=== PATIENT | female | born 2000 | race Caucasian/White ===

== ENCOUNTER 2020-02-16 08:41 | Outpatient (CLI) | payer BC, SELFPAY ==
--- NOTE | ~2020-02-16 | MR_ITS ---
EXAMINATION: Michelle Kwan DATE: 02/16/2020 10:35 INDICATION: Bilateral temporomandibular joint disorder. Arthralgia of bilateral temporomandibular daniel nts. TECHNIQUE: Magnetic resonance imaging (MRI) of the temporomandibular joints was performed without and with 13 mL MultiHance intravenous contrast. Sequences included closed-mouth sagittal T2-weighted FSE and PD-weighted FSE and coronal T1-weighted SE and open-mouth sagittal T2-weighted FSE and PD-weight ed FSE and coronal T1-weighted SE. Postcontrast sequences included closed-mouth sagittal T1-weighted FS FSE. COMPARISON: None. FINDINGS: The right temporomandibular joint demonstrates small osteophytes of the mandibular condyle. There is anterior displacement of the disk with mouth closed. There is decreased anterior translation of the m andibular condyle with mouth open. There is persistent anterior displacement of the disk with mouth o pen. No enhancing synovitis. The left temporomandibular joint demonstrates small osteophytes and subchondral cysts of the mandibul ar condyle. The anterior and posterior bands of the disk are small. There is anterior displacement o f the disk with mouth closed. There is decreased anterior translation of the mandibular condyle with mouth open. There is persistent anterior displacement of the disk with mouth open. There is enhancing synovitis. IMPRESSION: 1. Mild right temporomandibular joint osteoarthritis. Anterior disk displacement with mouth closed an d open. 2. Moderate left temporomandibular joint osteoarthritis. Anterior disk displacement with mouth closed and open. Reviewed, dictated and finalized at location A. 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 Mild right temporomandibular joint osteoarthritis. Anterior disk displacemen t with mouth closed and open. 2. Moderate left temporomandibular joint osteoarthritis. Anterior disk displace ment with mouth closed and open.
[2020-02-16 09:49] LABS: Estimated Glomerular Filt Rate > 60
== END 2020-02-16 08:42 | disposition home or self-care (01) ==
PROVIDERS: PCP Family Medicine
DX: M26.643 Arthritis of bilateral temporomandibular joint (principal)
CPT/HCPCS: 70336; A9577

== ENCOUNTER 2021-11-16 08:15 | Outpatient (CLI) | payer BC, SELFPAY ==
[2021-11-16 09:15] LABS: Alanine Aminotransferase 14 U/L (6-35); Albumin Level 4.7 g/dL (3.5-5.1); Alkaline Phosphatase 52 U/L (38-126); Aspartate Amino Transferase 32 U/L (14-36); Bilirubin,Total 0.8 mg/dL (0.2-1.3)
== END 2021-11-16 08:16 | disposition home or self-care (01) ==
PROVIDERS: PCP Family Medicine
DX: R76.8 Other specified abnormal immunological findings in serum (principal)
CPT/HCPCS: 36415; 80076

== ENCOUNTER 2022-05-24 17:16 | Outpatient (CLI) | payer BC, SELFPAY ==
[2022-05-24 17:43] LABS: Alanine Aminotransferase 18 U/L (6-35); Albumin Level 4.4 g/dL (3.5-5.1); Alkaline Phosphatase 56 U/L (38-126); Aspartate Amino Transferase 25 U/L (14-36); Bilirubin,Total 0.6 mg/dL (0.2-1.3)
== END 2022-05-24 17:17 | disposition home or self-care (01) ==
PROVIDERS: PCP Family Medicine
DX: Z83.2 Family history of diseases of the blood and blood-forming organs and certain disorders involving the immune mechanism (principal)
CPT/HCPCS: 36415; 80076

== ENCOUNTER 2024-12-19 22:51 | Emergency (ER) | payer BC, SELFPAY ==
--- NOTE | ~2024-12-19 | XR_ITS ---
Examination: XR forearm RT 2V, XR elbow RT 2V Clinical History: FALL. PROXIMAL RIGHT FOREARM PAIN. Comparison: None Technique: 4 views right elbow, 2 views right forearm Findings/impression: Right elbow: 1. Radial head fracture. 2. No dislocation. Right forearm: 1. Radial head fracture. 2. No additional fracture right forearm. Reviewed, dictated and finalized at location R.
--- NOTE | 2024-12-19 22:53 | ED.UPPEXIN ---
HPI - Extremity Injury (Upper) General Chief Complaint: Extremity Injury, Upper Stated Complaint: arm pain Time Seen by Provider: 12/19/24 22:52 Source: patient Mode of arrival: ambulatory Limitations: no limitations History of Present Illness HPI narrative: Patient is a 23-year-old female with a right elbow injury after playing softball this evening. [place] was at base at and ran slipped and landed on her right elbow. She heard a pop sound. MD complaint: injury to: right and elbow Onset (ago): hour(s) (One) Other injuries: none Place: outdoors Severity: moderate Severity scale (1-10): 7 Relieving factors: immobilization Exacerbating factors: movement of extremity Context: fall, direct blow, injury and sports-related injury Associated symptoms: denies other symptoms Treatments prior to arrival: cold therapy Related Data Allergies Allergy/AdvReac Type Severity Reaction Status Date / Time No Known Allergies Allergy Verified 12/19/24 22:52 Review of Systems Review of Systems: All systems reviewed & are unremarkable except as noted in HPI and below Constitutional: Constitutional: Reports no additional constitutional complaints Eyes: Eyes: Reports no additional eye complaints ENT: Reports system reviewed and no additional complaints, except as documented Cardiovascular: Cardiovascular: Reports no additional cardiovascular complaints Respiratory: Respiratory: Reports no additional respiratory complaints Gastrointestinal: Gastrointestinal: Reports no additional gastrointestinal complaints Genitourinary: Genitourinary: Reports no additional female genitourinary complaints Musculoskeletal: Musculoskeletal: Reports no additional musculoskeletal complaints Integumentary/Breasts: Skin/Breast: Reports system reviewed and no additional complaints, except as docu Neurologic: Reports system reviewed and no additional complaints, except as documented Psychiatric: Psychiatric: Reports no additional psychiatric complaints Endocrine: Endocrine: Reports no additional endocrine complaints Hematologic/Lymphatic: Hematologic/Lymphatic: Reports no additional hematologic/lymphatic complaints Allergic/Immunologic: Allergic/Immunologic: Reports no additional allergic/immunologic complaints Exam Const: General: healthy appearing Nutritional Appearance: well nourished Orientation/consciousness: patient oriented x3 HENMT: Head: normal to inspection Ears: external ears normal Face/Nose/Sinus: Normal external nose present Eyes: Conjunctivae: conjunctivae normal Pupils: Equal, round and reactive pupils present EOM: EOMs intact bilaterally Neck: Neck: normal visual inspection Chest: Chest palpation & inspection: normal inspection of the chest Resp: Effort & Inspection: normal respiratory effort and not labored Auscultation: clear to auscultation bilaterally and no crackles Cardio: Rate: regular rate Rhythm: regular rhythm Heart sounds: no murmurs GI: Inspection: non-distended GI Palp: Yes Soft to palpation and No Tenderness to palpation present (GI) Auscultation: normal bowel sounds : General: Yes bladder normal to palpation Back/Spine/Pelvis: Back: no CVA tenderness Skin: General skin exam: normal color Rashes: no rashes Wounds: no wounds Neuro: General: patient oriented x3, moves all extremities and no meningeal signs Extrem: General: normal to inspection, no clubbing, cyanosis or edema and no pedal edema Other: Right elbow appears swollen and irregular with tenderness to palpation to medial aspect Psych: Mental Status: mental status grossly normal Affect: Anxious affect present Attitude: cooperative Course Vital Signs Vital signs: Vital Signs Temperature 36.6 C 12/19/24 22:54 Pulse Rate 142 H 12/19/24 22:54 Respiratory Rate 20 12/19/24 22:54 Blood Pressure 139/102 H 12/19/24 22:54 Pulse Oximetry 97 12/19/24 22:54 Oxygen Delivery Room Air 12/19/24 22:54 Temperature 36.6 C 12/19/24 22:54 Pulse Rate 142 H 12/19/24 22:54 Respiratory Rate 20 12/19/24 22:54 Blood Pressure 139/102 H 12/19/24 22:54 Pulse Oximetry 97 12/19/24 22:54 Oxygen Delivery Room Air 12/19/24 22:54 MDM - Extremity Injury (Upper) MDM Narrative Medical decision making narrative: Patient is a 23-year-old female with right elbow injury while playing sports this evening. X-ray. Morphine. Toradol. X-ray shows fracture of the proximal or radial head. OCL and sling. Ortho this week. Imaging Data Attestation: I personally reviewed and interpreted this imaging study as follows: Radiologist's impression: X-ray right elbow shows radial head fracture X-ray right forearm shows radial head fracture Discharge Plan Discharge Clinical Impression: Closed fracture of radial head Qualifiers: Encounter type: initial encounter Fracture alignment: displaced Laterality: right Qualified Code(s): S52.121A - Displaced fracture of head of right radius, initial encounter for closed fracture Patient Disposition: Home Condition: Stable Instructions: Arm Fracture in Adults (ED) Additional Instructions: Please call orthopedics surgery after the weekend and make an appointment as soon as possible. This will need surgery. Patient Language: Latvian Prescriptions: New hydrocodone-acetaminophen 5-325 mg tablet 1 tablet PO Q8H PRN (Reason: pain) Qty: 20 0RF Follow-up/Referrals: Agustín,MD Edmar [Primary Care Provider, Family Practice] Stand Alone Forms: Work/School Release IP Time of Disposition: 00:02
--- OUTSIDE RECORDS SUMMARY | 2024-12-19 22:53 | XMS_ITS | Clinical Summary ---
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 Gender Identity Not on file Sexual Orientation Not on file Plan of Treatment Health Maintenance Due Date Last Done Comments Cervical Cancer Screening Pap Smear (Age 21 to 29) Every 3 Years 2000 Cervical Cancer Screening 2000 Annual Physical 12/25/2003 DTaP, Tdap and Td Vaccines (6 - Tdap) 12/25/2011 10/04/2006, 07/08/2002, 06/24/2001, Additional history exists HPV Vaccines (1 - 3-dose series) 12/25/2015 Meningococcal B Vaccine (1 of 2 - Standard) 2016 Hepatitis C 2018 Hepatitis B Vaccines (1 of 3 - 19+ 3-dose series) 12/25/2019 COVID-19 Vaccine ( - season) 2024 Meningococcal Vaccine Completed 08/22/2018 Pneumococcal Vaccine: Pediatrics (0 to 5 Years) and At-Risk Patients (6 to 49 Years) Aged Out No longer eligible based on patient's age to complete this topic RSV Immunizations Under 20 Months Aged Out No longer eligible based on patient's age to complete this topic Insurance [facility] Care Teams Early Childhood Assistant Relationship Specialty Start Date End Date Erasto Rivera MD [address] [place] [id number] PCP - General FAMILY PRACTICE 05/13/19
--- OUTSIDE RECORDS SUMMARY | 2024-12-19 22:53 | XMS_ITS | Clinical Summary ---
Author Organization [facility] Address [address] [place] [id number] Care Team Providers Care Sales Project Coordinator Name Role Phone Edmar Randolph MD Primary Care Provider Allergies No known active allergies Medications Blisovi Fe , 1 mg-20 mcg (21)/75 mg (7) per tablet Take 1 tablet by mouth daily 10/03/2021 Active hydroxychloroqu ine (PLAQUENIL) 200 mg tabletIndicatio ns:Connective Tissue Disease Take 2 tablets (400 mg total) by mouth daily 180 tablet 1 09/18/2024 Active Active Problems No known active problems Encounters Date Type Department Care Team Description 10/25/2024 6:53 AM CDT - 10/25/2024 11:59 PM CDT Hospital Encounter [facility] [address] [place] [id number] Systemic lupus erythematosus, unspecified SLE type, unspecified organ involvement status (HCC); Dyspnea, unspecified type Discharge Disposition: Discharge to home or self care 10/13/2024 11:55 AM CDT - 10/13/2024 11:59 PM CDT Hospital Encounter [address] [address] Systemic lupus erythematosus, unspecified SLE type, unspecified organ involvement status (HCC); Elevated CK Discharge Disposition: Discharge to home or self care 10/13/2024 11:45 AM CDT [facility] Endocrinology Metabolism and Lipid [address] [facility] 5th [place] [address] [place] [address] Systemic lupus erythematosus, unspecified SLE type, unspecified organ involvement status (HCC); Elevated CK 10/13/2024 10:20 AM CDT Office Visit [facility] Medicine Rheumatology [address] [facility] 5th [place] [id number] Kinga Rodrigues MD Systemic lupus erythematosus, unspecified SLE type, unspecified organ involvement status (HCC) (Primary Dx); Raynaud's disease without gangrene; High risk medication use; Elevated CK; Dyspnea, unspecified type; Facial rash 10/13/2024 Results Follow-Up [facility] Medicine Rheumatology [address] [place] [id number] Kinga Rodrigues MD Urinalysis reflex to microscopic and culture Urine, clean voided, Pro B-type natriuretic peptide, C4 complement, Additional followed-up results: 4 09/18/2024 Orders Only [facility] Medicine Rheumatology [address] [place] [address] [place] [address] Joanna Hinojosa MD from Last 3 Months Surgical History Surgery Date Site/Laterality Comments FOOT SURGERY Medical History Medical History Date Comments TMJ (dislocation of temporomandibular joint) Family History Medical History Relation Name Comments Arthritis Mother Relation Name Status Comments Mother Social History Tobacco Use Types Packs/Day Years Used Date Smoking Tobacco: Never Tobacco Cessation:Counseling Given: Not Answered AUDIT-C Answer Date Recorded Q1: How often do you have a drink containing alc ohol? Monthly or less 10/13/2024 Q2: How many drinks containi ng alcohol do you have on a typical day when you are drinking? 1 or 2 10/13/2024 Q3: How often do you have si x or more drinks on one occasion? Never 10/13/2024 Comments Unknown Sex and Gender Information Value Date Recorded Sex Assigned at Not on file Legal Sex Female 1:30 AM [employer] Gender Identity Not on file Sexual Orientation Not on file Obstetrics History Last Filed Vital Signs Vital Sign Reading Time Taken Comments Blood Pressure 125/75 10/13/2024 10:10 AM CDT Pulse 51 09/01/2024 7:47 AM CDT Temperature 37.2 C (98.9 F) 10/13/2024 10:10 AM CDT Respiratory Rate 18 10/13/2024 10:10 AM CDT Oxygen Saturation 100% 10/13/2024 10:10 AM CDT Inhaled Oxygen Concentration - - Weight 72.4 kg (159 lb 9.6 oz) 10/13/2024 10:10 AM CDT Height 180.3 cm (5' 11) 09/01/2024 7:47 AM CDT Body Mass Index 22.26 09/01/2024 7:47 AM CDT Plan of Treatment Health Maintenance Due Date Last Done Comments Cervical Cancer Screening 2000 Depression Screening 2000 Hepatitis C Screening 2000 Pneumococcal vaccine <65 (1 of 2 - PPSV23, PCV20, or PCV21) 06/17/2002 04/22/2002, 01/10/2002, 05/07/2001, Additional history exists HPV Vaccines (1 - Risk 3-dos e series) 12/25/2011 Meningococcal B Vaccine (1 o f 2 - Standard) 2016 Regular Well Visit/Exam 18-64 2018 Zoster Vaccine (1 of 2) 12/25/2019 Covid-19 Vaccine (3 - Pfizer risk series) 12/21/2020 11/23/2020, 11/02/2020 DTaP/Tdap/Td Vaccine (7 - Td or Tdap) 08/06/2022 08/06/2012, 10/04/2006, 07/08/2002, Additional history exists Influenza Vaccine (#1) 2024 Hepatitis B Screening Completed 07/08/2002 , 05/07/2001, 02/28/2001 Varicella Vaccines Completed 10/23/2006, 01/10/2002 Procedures Procedure Name Priority Date/Time Associated Diagnosis Comments CT CHEST HIGH RESOLUTION WO CONTRAST Schedule Routine, Read Routine (OP Routine) 10/25/2024 7:26 AM CDT Systemic lupus erythematosus, unspecified SLE type, unspecified organ involvement status (HCC) Dyspnea, unspecified type ANTI-DOUBLE STRANDED DNA ANTIBODIES Routine 10/13/2024 11:55 AM CDT Systemic lupus erythematosus, unspecified SLE type, unspecified organ involvement status (HCC) Elevated CK LUPUS ANTICOAGULANT PANEL PLUS REFLEXES Routine 10/13/2024 11:55 AM CDT Systemic lupus erythematosus, unspecified SLE type, unspecified organ involvement status (HCC) BETA 2 GLYCOPROTEIN IGM AB Routine 10/13/2024 11:55 AM CDT Systemic lupus erythematosus, unspecified SLE type, unspecified organ involvement status (HCC) BETA 2 GLYCOPROTEIN IGG AB Routine 10/13/2024 11:55 AM CDT Systemic lupus erythematosus, unspecified SLE type, unspecified organ involvement status (HCC) CARDIOLIPIN ANTIBODY, IGG AND IGM Routine 10/13/2024 11:55 AM CDT Systemic lupus erythematosus, unspecified SLE type, unspecified organ involvement status (HCC) ALDOLASE Routine 10/13/2024 11:55 AM CDT Elevated CK C3 COMPLEMENT Routine 10/13/2024 11:55 AM CDT Systemic lupus erythematosus, unspecified SLE type, unspecified organ involvement status (HCC) C4 COMPLEMENT Routine 10/13/2024 11:55 AM CDT Systemic lupus erythematosus, unspecified SLE type, unspecified organ involvement status (HCC) PRO B-TYPE NATRIURETIC PEPTIDE Routine 10/13/2024 11:55 AM CDT Systemic lupus erythematosus, unspecified SLE type, unspecified organ involvement status (HCC) Elevated CK CREATINE KINASE (CK), TOTAL Routine 10/13/2024 11:55 AM CDT Elevated CK ERYTHROCYTE SEDIMENTATION RATE Routine 10/13/2024 11:55 AM CDT Systemic lupus erythematosus, unspecified SLE type, unspecified organ involvement status (HCC) CRP (ACUTE PHASE) Routine 10/13/2024 11: 55 AM CDT Systemic lupus erythematosus, unspecified SLE type, unspecified organ involvement status (HCC) COMPREHENSIVE METABOLIC PANEL Routine 10/13/2024 11:55 AM CDT Systemic lupus erythematosus, unspecified SLE type, unspecified organ involvement status (HCC) CBC WITH AUTO DIFFERENTIAL Routine 10/13/2024 11:55 AM CDT Systemic lupus erythematosus, unspecified SLE type, unspecified organ involvement status (HCC) URINALYSIS AND REFLEX TO MICROSCOPIC AND CULTURE Routine 10/13/2024 11:55 AM CDT Systemic lupus erythematosus, unspecified SLE type, unspecified organ involvement status (HCC) from Last 3 Months Results * CT Chest High Resolution WO Contrast (10/25/2024 7:26 AM CDT) Anatomical Region Laterality Modality Chest N/A Computed Tomogra phy 10/25/2024 12:1 2 PM CDT Impressions 10/25/2024 12:[address]T Normal chest CT. Electronically signed by: Dean Staton M.D. Narrative 10/25/2024 12:12 PM CDT Examination: Computed tomography of the chest without intravenous contrast DATE: 10/25/2024. HISTORY: Dyspnea TECHNIQUE: Computed tomography of the chest was obtained without intravenous contrast according to the high-resolution CT protocol. FINDINGS: No prior studies are available for comparison. No airspace opacity, effusion, or pneumothorax. Expiratory images are normal. No lymphadenopathy. Heart size is normal, no pericardial effusion. Upper abdomen is normal. Bone windows demonstrate no lytic or blastic lesions. Procedure Note Dean Staton MD - 10/25/2024 Examination: Computed tomography of the chest without intravenous contrast DATE: 10/25/2024. HISTORY: Dyspnea TECHNIQUE: Computed tomography of the chest was obtained without intravenous contrast according to the high-resolution CT protocol. FINDINGS: No prior studies are available for comparison. No airspace opacity, effusion, or pneumothorax. Expiratory images are normal. No lymphadenopathy. Heart size is normal, no pericardial effusion. Upper abdomen is normal. Bone windows demonstrate no lytic or blastic lesions. IMPRESSION: Normal chest CT. Electronically signed by: Dean Staton M.D. us Kinga Rodrigues MD IMG CT PROCEDURES Final Resu lt * Lupus Anticoagulant Panel plus Reflexes (10/13/2024 11:55 AM CDT) PT 10.2 9.7 - 13.0 sec INR 0.95 0.90 - 1.20 [facility] Comment: Interpretive data Oral anticoagulant therapeutic ranges: Venous thromboembolism prophylaxis or treatment: 2.0-3.0 CARDIOLOGY Standard range: 2.0-3.0 High-intensity range: 2.5-3.5 Refer to indication-specific guidelines for appropriate target ranges for prosthetic heart valve replacement. Current interpretive data was last revised on 2019. aPTT 29 28 - 38 sec [facility] Comment: Interpretive Data Heparin therapeutic range: 66.0 - 100.0 seconds. Range based on correlation with therapeutic heparin activity range of 0.3 - 0.7 Units/mL. Current interpretive data was last revised on 2022. DRVVT screen ratio 1.05 0.00 - 1.20 Ratio [facility] SCT Screen Ratio 0.81 0.00 - 1.16 Ratio [facility] Lupus anticoagulant, interp Negative [facility] Comment: Interpretive data Lupus anticoagulants (LA) are acquired autoantibodies that interfere with invitro clotting in a phospholipid-dependent manner and are associated with an increased risk of thromboembolic events and complications. Routine APTT and PT reagents are not sensitive to inhibition by LA, and should not be used as screening tests. The laboratory follows ISTH 2009 guidelines (Pengo, 2009) for LA testing and interpretation: Two sensitive methods performed in parallel improve sensitivity. One activates the intrinsic pathway (Silica-APTT) and one activates the common pathway (dilute Contreras's viper venom time - dRVVT). Each method begins with a SCREEN step, and if neither is prolonged, no further testing is performed and the interpretation is: NO LA DETECTED. If either screening test is prolonged, then additional steps are performed to provide specificity. A POSITIVE LA result occurs if either one or both tests produce a positive CONFIRM result. An INDETERMINATE result means results cannot distinguish between coagulopathy and a weak LA. Consider retesting when PT/INR is less prolonged, if clinical indicated. To support laboratory confirmation of antiphospholipid syndrome, persistence of a positive LA result should be verified by repeat testing at least 12 weeks later (Batool, 2006). Prior to LA testing, the laboratory screens patient plasma samples for evidence of heparin contamination, which is neutralized prior to LA testing, and the following interfering conditions which require canceling LA testing: INR >3.0, fibrinogen < 100 mg/dl, use of direct oral or IV anticoagulants other than heparin. References: 1) Maggie V, Linda A, Paty JH, Ortyler TL, Gely M, De Lyudmila PG. Update of the guidelines for lupus anticoagulant detection. J Thromb Haemost. 2009; 7:6748-5474. 2. Batool Falk et al. International consensus statement on an update of the classification criteria for definite antiphospholipid syndrome (APS). J Thromb Haemost. 2006; 4:295-306. Current interpretive data was last revised on 2018 Blood 10/13/2024 11:5 5 AM CDT 10/13/2024 2:00 PM CDT us Kinga Rodrigues MD LAB BLOOD ORDERABLES Final R [place] [employer] JORGE [facility] Department [place] [address] * Anti-double stranded DNA abs (10/13/2024 11:55 AM CDT) [facility] Signature dsDNA Ab 2.0 <=4.0 IUnits/mL Comment: Interpretive Data Negative: < or = 4 IUnits/mL Indeterminate: 5 - 9 IUnits/mL Positive: > or = 10 IUnits/mL Current interpretive data was last revised on 2016. Blood 10/13/2024 11:5 5 AM CDT 10/13/2024 2:25 PM CDT us Kinga Rodrigues MD LAB BLOOD ORDERABLES Final R esult J[facility]GE [facility] Department [place] [address] * C4 complement (10/13/2024 11:55 AM CDT) Complement C4 11.5 10.0 - 40.0 mg/dL Blood 10/13/2024 11:5 5 AM CDT 10/13/2024 2:00 PM CDT us Kinga Rodrigues MD LAB BLOOD ORDERABLES Final R esult Performing Organization Address [facility] Co de Phone Number JORGE MORIN Mireya [facility] [place] [address] * Pro B-type natriuretic peptide (10/13/2024 11:55 AM CDT) NT-proBNP 132 <=300 pg/mL Comment: Interpretive Comments: A. Dyspnea in Acute Care Setting All Ages: < 300 pg/ml, acute heart failure unlikely. < 50 yrs: 300 - 450 pg/ml, further investigation warranted. > 450 pg/ml, acute heart failure likely. 50 - 74 yrs: 300 - 900 pg/ml, further investigation warranted. > 900 pg/ml, acute heart failure likely . > or = 75 yrs: 450 - 1800 pg/ml, further investigation warranted. > 1800 pg/ml, acute heart failure likely. B. Non-acute Setting < 75 yrs < 125 pg/ml, rules out heart failure. > or = 125 pg/ml, further investigation warranted. > or = 75 yrs < 450 pg/ml, rules out heart failure. > or = 450 pg/ml, further investigation warranted. - Knowledge of each individual patient's NT-proBNP range may be more useful than using similar cut-points for every patient. Please note that marked elevations in NT-proBNP levels may be observed in state other than Left Ventricular Congestive Failure, including: acute coronary syndromes, right heart strain/failure (including pulmonary embolism and cor pulmonale), critical illness, renal failure, as well as advanced age. - References: 1. Ronen ALVARADO et.al. Eur Heart J. 2006:27:330-337. 2. Jessika VYAS, Maryam STEEN. J. AM Maxi Cardiol: Cardiovasc Imag. 2009;2: 216- 225. Interpretive Data Last Revised Date: 2017. Blood 10/13/2024 11:5 5 AM CDT 10/13/2024 2:00 PM CDT us Kinga Rodrigues MD LAB BLOOD ORDERABLES Final R esult Performing Organization Address [facility] de Phone Number JORGE [facility] Department [place] [address] * Beta 2 glycoprotein IgM Ab (10/13/2024 11:55 AM CDT) [facility] Beta-2 glycoprotein I, IgM <1.5 <=19.9 units/mL Comment: Interpretive Data Negative: <20 U/mL Positive: > or = 20 U/mL Beta- 2 glycoprotein 1 (Beta-2 GP1) antibodies are a more specific marker of thrombotic risk. It is expected that some samples will be ACL positive and Beta- 2 GP1 negative. In order to improve specificity, the International Congress on Antiphospholipid Antibodies recommends Beta-2 GP1 antibodies of IgG or IgM isotype (> the 99th percentile), obtained twice, at least 12 weeks apart, to support a diagnosis of antiphospholipid syndrome. The cutoff for this assay was developed from data based on the 99th percentile. The Beta-2 GP1 IgM test can produce false positive results due to cross-reactivity with Rheumatoid factor. These results were obtained with the Hello Chair 2200 System. Beta-2 GP1 IgM values obtained with different manufacturers' assay methods may not be used interchangeably. Current interpretive data was last revised on 2016. Blood 10/13/2024 11:5 5 AM CDT 10/13/2024 2:00 PM CDT us Kinga Rodrigues MD LAB BLOOD ORDERABLES Final R esult Performing Organization Address [facility] Co de Phone Number [facility] Department [place] [address] * Beta 2 glycoprotein IgG Ab (10/13/2024 11:55 AM CDT) Beta-2 glycoprotein I, IgG <1.4 <=19.9 units/mL Comment: Interpretive Data Negative: <20 U/mL Positive: > or = 20 U/mL Beta-2 glycoprotein 1 (Beta-2 GP1) antibodies are a more specific marker of thrombotic risk. It is expected that some samples will be ACL positive and Beta- 2 [id number]. In order to improve specificity, the International Congress on Antiphospholipid Antibodies recommends Beta-2 GP1 antibodies of IgG or IgM isotype (> the 99th percentile), obtained twice, at least 12 weeks apart, to support a diagnosis of antiphospholipid syndrome. The cutoff for this assay was developed from data based on the 99th percentile. These results were obtained with the Hello Chair 2200 System. Beta 2GP1 IgG values obtained with different manufacturers' assay methods may not be used interchangeably. Current interpretive data was last revised on 2016. Blood 10/13/2024 11:5 5 AM CDT 10/13/2024 2:00 PM CDT us Kinga Rodrigues MD LAB BLOOD ORDERABLES Final R esult [facility] Department [place] [address] * Urinalysis reflex to microscopic and culture Urine, clean voided (10/13/2024 11:55 AM CDT) Pathologist [facility] Color, ur Straw Yellow Clarity, ur Clear Clear [facility] Specific gravity, ur 1.007 1.003 - 1.030 [facility] pH, urine 7.0 [facility] Comment: Interpretive Data U rine pH is affected by diet, medications, systemic acid-base disturbances, and renal tubular function. pH may affect urinary stone formation. For example, urine pH below 6.0 may help reduce the tendency for calcium phosphate stones and pH greater than 6.0 may reduce the tendency for uric acid stone formation. Source: [facility] Current Interpretive Data was last revised on 2017 Protein, ur ql Negative Negative [facility] Glucose, ur ql Negative Negative [facility] Ketones, ur Negative Negative [facility] Bilirubin, ur Negative Negative [facility] Blood, ur Negative Negative [facility] Urobilinogen, ur <2.0 <2.0 mg/dL [facility] Nitrite, ur Negative Negative [facility] Leukocyte esterase, ur Negative Negative [facility] UA reflex comment Reflex conditions for microscopic UA and culture not met. [facility] Urine, clean voided 10/13/2024 11:55 AM CDT 10/13/2024 2:00 PM CDT us Kinga Rodrigues MD LAB MICROBIOLOGY - GENERAL O RDERABLES Final Result [facility] Department [place] [address] * (ABNORMAL) CBC with auto differential (10/13/2024 11:55 AM CDT) White Blood Count 3.5(L) 3.6 - 11.2 K/uL [facility] RBC 4.17 3.63 - 4.92 M/uL [facility] Hemoglobin 13.0 11.9 - 15.5 g/dL [facility] Hematocrit 38.8 36.1 - 44.3 % [facility] MCV 93.0 80.0 - 97.6 fL [facility] MCH 31.2 26.7 - 33.7 pg [facility] MCHC 33.5 32.7 - 35.5 g/dL [facility] RBC Dist Width 12.3 12.3 - 17.0 % [facility] Platelet Count 319 140 - 440 K/uL [facility] MPV 7.2 6.8 - 10.4 fL [facility] Neutrophils % 50.3 38.7 - 74.5 % [facility] Lymphocyte % 37.9 20.0 - 54.3 % [facility] Monocytes % 6.9 4.3 - 13.5 % [facility] Eosinophils % 3.8 0.0 - 6.0 % [facility] Basophil % 1.1 0.0 - 3.0 % [facility] Absolute Neutrophil 1.8 1.8 - 6.6 K/uL [facility] Absolute Lymphocyte 1.3 0.8 - 3.3 K/uL [facility] Absolute Monocyte 0.2 0.2 - 1.2 K/uL [facility] Absolute Eosinophil 0.1 0.0 - 0.5 K/uL [facility] Absolute Basophil 0.0 0.0 - 0.2 K/uL [facility] Nucleated RBC % 0.1 0.0 - 0.4 /100 WBC [facility] Blood 10/13/2024 11:5 5 AM CDT 10/13/2024 12:35 PM CDT Kinga Rodrigues MD LAB BLOOD ORDERABLES Final R esult [facility] * Aldolase (10/13/2024 11:55 AM CDT) Pathologist [facility] Aldolase 5.0 0.1 - 8.0 Units/L Blood 10/13/2024 11:5 5 AM CDT 10/13/2024 2:00 PM CDT Kinga Rodrigues MD LAB BLOOD ORDERABLES Final R esult [facility] Department [place] [address] * Cardiolipin antibody, IgG and IgM (10/13/2024 11:55 AM CDT) Cardiolipin, IgG <1.6 <=19.9 GPL U/mL Comment: Interpretive Data Negative: <20 GPL U/mL Positive: > or = 20 GPL U/mL Anticardiolipin antibodies are associated with certain clinical events including unexplained arterial and venous thromboemboli, and unexplained morbidity. However, detection of low levels of anticardiolipin antibodies occurs in both healthy individuals and patients with co-morbidities not associated with the antiphospholipid antibody (APA) syndrome including inflammatory and infectious conditions. In order to improve specificity, the International Congress on Antiphospholipid Antibodies recommends ACL antibodies of IgG or IgM isotype present in medium or high titer (e.g. > 40 GPL, or >the 99th percentile), on two or more occasions, at least 12 weeks apart, to support a diagnosis of antiphospholipid syndrome. The cutoff for this assay was developed from data based on the 99th percentile. In addition, the International Congress on Antiphospholipid Antibodies does not recommend testing for IgA CATHY. These results were obtained with the Hello Chair 2200 System. Cardiolipin IgG values obtained with different manufacturers' assay methods may not be used interchangeably. Current interpretive data was last revised on 2016. Cardiolipin, IgM <1.5 <=19.9 MPL U/mL [facility] Comment: Interpretive Data Negative: <20 MPL U/mL Positive: > or = 20 MPL U/mL Anticardiolipin antibodies are associated with certain clinical events including unexplained arterial and venous thromboemboli, and unexplained morbidity. However, detection of low levels of anticardiolipin antibodies occurs in both healthy individuals and patients with co-morbidities not associated with the antiphospholipid antibody (APA) syndrome including inflammatory and infectious conditions. In order to improve specificity, the International Congress on Antiphospholipid Antibodies recommends ACL antibodies of IgG or IgM isotype present in medium or high titer (e.g. > 40 MPL, or >the 99th percentile), on two or more occasions, at least 12 weeks apart, to support a diagnosis of antiphospholipid syndrome. The cutoff for this assay was developed from data based on the 99th percentile. In addition, the International Congress on Antiphospholipid Antibodies does not recommend testing for IgA CATHY. The ACL IgM test can produce false positive results due to cross-reactivity with Rheumatoid factor, dsDNA or certain infectious disease antibodies. These results were obtained with the Hello Chair 2200 System. Cardiolipin IgM values obtained with different manufacturers' assay methods may not be used interchangeably. Current interpretive data was last revised on 2016. Blood 10/13/2024 11:5 5 AM CDT 10/13/2024 2:00 PM CDT us Kinga Rodrigues MD LAB BLOOD ORDERABLES Final R esult Performing Organization Address [facility] Co de Phone Number [facility] [place] [address] * Erythrocyte sedimentation rate (10/13/2024 11:55 AM CDT) Erythrocyte Sedimentation Rate 5 <20 mm/hr [facility] Comment:Repeated and Verifie d Blood 10/13/2024 11:5 5 AM CDT 10/13/2024 12:35 PM CDT us Kinga Rodrigues MD LAB BLOOD ORDERABLES Final R esult Performing Organization Address [facility] Co de Phone Number [facility] * C3 complement (10/13/2024 11:55 AM CDT) Complement C3 132.0 90.0 - 180.0 mg/dL Blood 10/13/2024 11:5 5 AM CDT 10/13/2024 2:00 PM CDT us Kinga Rodrigues MD LAB BLOOD ORDERABLES Final R esult Performing Organization Address [facility] Co de Phone Number [facility] [place] [address] * CRP (acute phase) (10/13/2024 11:55 AM CDT) C-Reactive Protein, Acute <3.0 <5.0 mg/L [facility] Blood 10/13/2024 11:5 5 AM CDT 10/13/2024 12:35 PM CDT us Kinga Rodrigues MD LAB BLOOD ORDERABLES Final R esult [facility] * Creatine kinase (CK), total (10/13/2024 11:55 AM CDT) CK, Total 148 26 - 308 IU/L [facility] Blood 10/13/2024 11:5 5 AM CDT 10/13/2024 12:35 PM CDT us Kinga Rodrigues MD LAB BLOOD ORDERABLES Final R esult [facility] * Comprehensive metabolic panel (10/13/2024 11:55 AM CDT) Total Protein 7.6 6.1 - 8.4 g/dL [facility] Albumin 4.7 3.5 - 5.2 g/dL [facility] Calcium 9.6 8.6 - 10.3 mg/dL [facility] BUN 8 7 - 23 mg/dL [facility] Total Bilirubin 0.63 0.20 - 1.40 mg/dL [facility] Alk Phos, Total 53 35 - 129 IU/L [facility] AST (SGOT) 22 11 - 47 IU/L [facility] ALT (SGPT) 14 6 - 53 IU/L [facility] Creatinine 0.78 0.60 - 1.10 mg/dL [facility] Sodium 140 135 - 145 mmol/L [facility] Potassium 4.1 3.3 - 5.1 mmol/L [facility] Chloride 104 95 - 107 mmol/L [facility] CO2 Content 24 21 - 29 mmol/L [facility] Glucose 95 64 - 99 mg/dL [facility] Comment: NONFASTING GLUCOSE RANGE = 64-199 mg/dL FASTING GLUCOSE 64 - 99 = NORMAL FASTING GLUCOSE 100 - 125 = IMPAIRED FASTING GLUCOSE FASTING GLUCOSE >=126 = PROVISIONAL DIAGNOSIS OF DIABETES eGFR >90.0 >60.0 mL/min/1.7 3 m2 [facility] Blood 10/13/2024 11:5 5 AM CDT 10/13/2024 12:35 PM CDT us Kinga Rodrigues MD LAB BLOOD ORDERABLES Final R esult [facility] from Last 3 Months Insurance [employer] [place] Pay[employer] [place] Care Teams Sales Project Coordinator Relationship Specialty Start Date End Date Edmar Randolph MD PCP - General Family Medicine 06/02/20
--- OUTSIDE RECORDS SUMMARY | 2024-12-19 22:53 | XMS_ITS | Clinical Summary ---
Author Organization [facility] Address [address] [place] [address] Care Team Providers Care Pigment Furnace Tender Name Role Phone Unavailable Primary Care Provider Unavailabl e Source Comments [facility],non-owned Affiliates and Associated Physician Practices is amultiple site organization consisting of ambulatory clinics and hospital sitesin [place], [place], [place] and [place]. This disclosure is being madepursuant to the Care Everywhere program and may not contain all information available regarding this patient. Last updated 17.[facility] Allergies No known active allergies Medications * Be aware that medications may not be up to date on this document. Alwaysverify current medications with the patient. No known medications Social History Tobacco Use Types Packs/Day Years Used Date Smoking Tobacco: Never Smokeless Tobacco: Never Comments Unknown Sex and Gender Information Value Date Recorded Sex Assigned at Not on file Legal Sex Female 1:30 PM PATTERN ATTENDANT Gender Identity Not on file Sexual Orientation Not on file Last Filed Vital Signs Vital Sign Reading Time Taken Comments Blood Pressure - - Pulse - - Temperature 36.7 C (98.1 F) 02/14/2020 2:03 PM PATTERN ATTENDANT Respiratory Rate 16 02/14/2020 2:03 PM PATTERN ATTENDANT Oxygen Saturation 97% 02/14/2020 2:03 PM PATTERN ATTENDANT Inhaled Oxygen Concentration - - Weight 68 kg (150 lb) 02/14/2020 2:03 PM PATTERN ATTENDANT Height 177.8 cm (5' 10) 02/14/2020 2:03 PM PATTERN ATTENDANT Body Mass Index 21.52 02/14/2020 2:03 PM PATTERN ATTENDANT Plan of Treatment Health Maintenance Due Date Last Done Comments HIV SCREENING 12/25/2015 HPV VACCINE (1 - 3-dose series) 12/25/2015 CHLAMYDIA/GONORRHEA SCREENING 2016 MENINGOCOCCAL (Group B) VACC INE SHARED DECISION-MAKING (1 of 2 - Standard) 2016 HEPATITIS C SCREENING 12/20/2018 DTAP/TDAP/TD VACCINES (1 - Tdap) 12/25/2019 HEPATITIS B VACCINE (1 of 3 - 19+ 3-dose series) 12/25/2019 DEPRESSION SCREENING 03/19/2024 COVID-19 VACCINE (1 - 4-2 5 season) 2024 INFLUENZA VACCINE (#1) 2024 ZOSTER VACCINE (1 of 2) 2050 HIB VACCINE Aged Out No longer eligi ble based on patient's age to complete this topic MENINGOCOCCAL GROUPS A/C/Y/W VACCINE Aged Out No longer eligible b ased on patient's age to complete this topic PNEUMOCOCCAL VACCINE Aged Out No long er eligible based on patient's age to complete this topic Insurance [facility]
--- OUTSIDE RECORDS SUMMARY | 2024-12-19 22:53 | XMS_ITS | Encounter Summary ---
Author Organization [facility] Address [address] [place] [address] Phone Care Team Providers Care Organizational Development Manager Name Role Phone Edmar Randolph MD Primary Care Provider Encounter Details Date Type Department Care Team (Late st Contact Info) Description 05/24/2022 Orders Only [facility] Scanning, Provider Social History Tobacco Use Types Packs/Day Years Used Date Smoking Tobacco: Never Comments Unknown Sex and Gender Information Value Date Recorded Sex Assigned at Not on file Legal Sex Female 1:30 AM ACCESS NURSE Gender Identity Not on file Sexual Orientation Not on file documented as of this encounter Plan of Treatment Not on file documented as of this encounter Procedures Procedure Name Priority Date/Time Associated Diagnosis Comments SCAN - LABS 05/24/2022 documented in this encounter Results * SCAN - LABS (05/24/2022) us Provider Scanning Final Result documented in this encounter Visit Diagnoses Not on filedocumented in this encounter Additional Health Concerns Infection Onset Date Last Indicated Resolved Time COVID: Suspected 06/09/2024 06/09/2024 06/09/2024 7:50 PM CDT COVID19 06/09/2024 06/09/2024 06/19/2024 3:06 AM CDT COVID: Recovered Comment:Added based on recent COVID infection. 06/19/2024 07/22/2024 09/17/2024 7:26 PM C DT documented as of this encounter Care Teams Organizational Development Manager Relationship Specialty Start Date End Date Edmar Randolph MD PCP - General Family Medicine 06/02/20 documented as of this encounter
[2024-12-19 22:54] VITALS: BP 139/102; PULSE 142; RESP 20; TEMP 36.6; O2SAT 97
[2024-12-19] MEDS: MORPHINE SULFATE (*CRX) 4 MG/ML INJ IM (22:57)
[2024-12-20] MEDS: KETOROLAC (*BKC) 60 MG/2 ML VIAL IM (00:22)
--- OUTSIDE RECORDS SUMMARY | 2024-12-20 00:27 | XMS_ITS | Clinical Summary ---
Author Organization [facility] Address [address] [place] [phone] Care Team Providers Care Marketing Development Manager Name Role Phone Edmar Randolph [...] - 10/25/2024 11:59 PM CDT Hospital Encounter [facility] [address] [place] [phone] Systemic lupus erythematosus, unspecified SLE type, unspecified organ involvement status (HCC); Dyspnea, unspecified type Discharge Disposition: Discharge to home or self care 10/13/2024 11:55 AM CDT - 10/13/2024 11:59 PM CDT Hospital Encounter [address] [address] Systemic lupus erythematosus, unspecified SLE type, unspecified organ involvement status (HCC); Elevated CK Discharge Disposition: Discharge to home or self care 10/13/2024 11:45 AM CDT [facility] End[facility] Metabolism and Lipid [address] [place] [address] [place] [address] Systemic lupus erythematosus, unspecified SLE type, unspecified organ involvement status (HCC); Elevated CK 10/13/2024 10:20 AM CDT Office Visit [facility] Medicine Rheumatology [address] [place] [address] [place] [address] Kinga Rodrigues MD Systemic lupus erythematosus, unspecified SLE type, unspecified organ involvement status (HCC) (Primary Dx); Raynaud's disease without gangrene; High risk medication use; Elevated CK; Dyspnea, unspecified type; Facial rash 10/13/2024 Results Follow-Up [facility] Medicine Rheumatology [address] [place] [id number] Kinga Rodrigues MD Urinalysis reflex to microscopic and culture Urine, clean voided, Pro B-type natriuretic peptide, C4 complement, Additional followed-up results: 4 from Last 3 Months Surgical History Surgery [...] on file Legal Sex Female 1:30 AM BUYER Gender Identity Not on file Sexual Orientation [...] 13.0 sec INR 0.95 0.90 - 1.20 [facility] Comment: Interpretive data Oral anticoagulant therapeutic ranges: Venous thromboembolism prophylaxis or treatment: 2.0-3.0 CARDIOLOGY Standard range: 2.0-3.0 High-intensity range: 2.5-3.5 Refer to indication-specific guidelines for appropriate target ranges for prosthetic heart valve replacement. Current interpretive data was last revised on 2019. aPTT 29 28 - 38 sec [facility] Comment: Interpretive Data Heparin therapeutic range: 66.0 - 100.0 seconds. Range based on correlation with therapeutic heparin activity range of 0.3 - 0.7 Units/mL. Current interpretive data was last revised on 2022. DRVVT screen ratio 1.05 0.00 - 1.20 Ratio [facility] SCT Screen Ratio 0.81 0.00 - 1.16 Ratio [facility] Lupus anticoagulant, interp Negative [facility] Comment: Interpretive data Lupus anticoagulants (LA) [...] lupus anticoagulant detection. J Thromb Haemost. 2009; 7:3407-9582. 2. Batool Huffman. et al. International consensus statement on an update of the classification criteria for definite antiphospholipid syndrome (APS). J Thromb Haemost. 2006; 4:295-306. Current interpretive data was last revised on 2018 Blood 10/13/2024 11:5 5 AM CDT 10/13/2024 2:00 PM CDT us Kinga Rodrigues MD LAB BLOOD ORDERABLES Final R esult Performing Organization Address [facility] de Phone Number [facility] [place] [address] * Anti-double stranded DNA abs (10/13/2024 11:55 AM CDT) [facility] dsDNA Ab 2.0 <=4.0 IUnits/mL Comment: Interpretive Data Negative: < or = 4 IUnits/mL Indeterminate: 5 - 9 IUnits/mL Positive: > or = 10 IUnits/mL Current interpretive data was last revised on 2016. Blood 10/13/2024 11:5 5 AM CDT 10/13/2024 2:25 PM CDT Kinga Rodrigues MD LAB BLOOD ORDERABLES Final R esult Performing Organization Address [facility] de Phone Number [facility] [place] [address] * C4 complement (10/13/2024 11:55 AM CDT) Complement C4 11.5 10.0 - 40.0 mg/dL Blood 10/13/2024 11:5 5 AM CDT 10/13/2024 2:00 PM CDT us Kinga Rodrigues MD LAB BLOOD ORDERABLES Final R esult [facility] [place] [address] * Pro B-type natriuretic peptide (10/13/2024 11:55 [...] et.al. Eur Heart J. 2006:27:330-337. 2. Jessika RW, Maryam AM. J. AM Maxi Cardiol: Cardiovasc Imag. 2009;2: 216- 225. Interpretive Data Last Revised Date: 2017. Blood 10/13/2024 11:5 5 AM CDT 10/13/2024 2:00 PM CDT Kinga Rodrigues MD LAB BLOOD ORDERABLES Final R esult Performing Organization Address [facility] Co de Phone Number [facility] [place] [address] * Beta 2 glycoprotein IgM Ab (10/13/2024 11:55 AM CDT) Beta-2 glycoprotein I, IgM <1.5 <=19.9 units/mL [...] factor. These results were obtained with the [employer] 2200 System. Beta-2 GP1 IgM values obtained with different manufacturers' assay methods may not be used interchangeably. Current interpretive data was last revised on 2016. Blood 10/13/2024 11:5 5 AM CDT 10/13/2024 2:00 PM CDT us Kinga Rodrigues MD LAB BLOOD ORDERABLES Final R esult Performing Organization Address City/[facility]/ZIP Co de Phone Number [facility] [place] [address] * Beta 2 glycoprotein IgG Ab (10/13/2024 11:55 AM CDT) Beta-2 glycoprotein I, IgG <1.4 <=19.9 units/mL Comment: Interpretive Data Negative: <20 U/mL Positive: > or = 20 U/mL Beta-2 glycoprotein 1 (Beta-2 GP1) antibodies are a more specific marker of thrombotic risk. It is expected that some samples will be ACL positive and Beta- 2 [id number]. In order to improve specificity, the International Congress on Antiphospholipid Antibodies recommends Beta-2 GP1 antibodies of IgG or IgM isotype (> the 99th percentile), obtained twice, at least 12 weeks apart, to support a diagnosis of antiphospholipid syndrome. The cutoff for this assay was developed from data based on the 99th percentile. These results were obtained with the [employer]0 System. Beta 2GP1 IgG values obtained with different manufacturers' assay methods may not be used interchangeably. Current interpretive data was last revised on 2016. Blood 10/13/2024 11:5 5 AM CDT 10/13/2024 2:00 PM CDT us Kinga Rodrigues MD LAB BLOOD ORDERABLES Final R esult [facility] [place] [address] * Urinalysis reflex to microscopic and culture Urine, clean voided (10/13/2024 11:55 AM CDT) Color, ur Straw Yellow Clarity, ur Clear Clear [facility] Specific gravity, ur 1.007 1.003 - 1.030 [facility] pH, urine 7.0 [facility] Comment: Interpretive Data U rine pH is affected by diet, medications, systemic acid-base disturbances, and renal tubular function. pH may affect urinary stone formation. For example, urine pH below 6.0 may help reduce the tendency for calcium phosphate stones and pH greater than 6.0 may reduce the tendency for uric acid stone formation. Source: [facility] Appticles Current Interpretive Data was last revised on 2017 Protein, ur ql Negative Negative [facility] Glucose, ur ql Negative Negative [facility] Ketones, ur Negative Negative [facility] Bilirubin, ur Negative Negative [facility] Blood, ur Negative Negative [facility] Urobilinogen, ur <2.0 <2.0 mg/dL [facility] Nitrite, ur Negative Negative [facility] Leukocyte esterase, ur Negative Negative [facility] UA reflex comment Reflex conditions for microscopic UA and culture not met. [facility] Urine, clean voided 10/13/2024 11:55 AM CDT 10/13/2024 2:00 PM CDT us Kinga Rodrigues MD LAB MICROBIOLOGY - GENERAL O RDERABLES Final Result [facility] [place] [address] * (ABNORMAL) CBC with auto differential (10/13/2024 [...] ORDERABLES Final R esult Performing Organization Address City/[facility]/ZIP Co de Phone Number [facility] * Aldolase (10/13/2024 11:55 AM CDT) Aldolase 5.0 0.1 - 8.0 Units/L Blood 10/13/2024 11:5 5 AM CDT 10/13/2024 2:00 PM CDT Kinga Rodrigues MD LAB BLOOD ORDERABLES Final R esult Performing Organization Address City/[facility] Co de Phone Number [facility] [place] [address] * Cardiolipin antibody, IgG and IgM (10/13/2024 [...] CATHY. These results were obtained with the [employer] 2200 System. Cardiolipin IgG values obtained with different manufacturers' assay methods may not be used interchangeably. Current interpretive data was last revised on 2016. Cardiolipin, IgM <1.5 <=19.9 MPL U/mL [facility] Comment: Interpretive Data Negative: <20 MPL U/mL [...] antibodies. These results were obtained with the [employer] 2200 System. Cardiolipin IgM values obtained with different manufacturers' assay methods may not be used interchangeably. Current interpretive data was last revised on 2016. Blood 10/13/2024 11:5 5 AM CDT 10/13/2024 2:00 PM CDT us Kinga Rodrigues MD LAB BLOOD ORDERABLES Final R esult [facility] [place] [address] * Erythrocyte sedimentation rate (10/13/2024 11:55 AM CDT) Erythrocyte Sedimentation Rate 5 <20 mm/hr [facility] Comment:Repeated and Verifie d Blood 10/13/2024 11:5 5 AM CDT 10/13/2024 12:35 PM CDT us Kinga Rodrigues MD LAB BLOOD ORDERABLES Final R esult Performing Organization Address [facility] Co de Phone Number [facility] * C3 complement (10/13/2024 11:55 AM CDT) Complement C3 132.0 90.0 - 180.0 mg/dL Blood 10/13/2024 11:5 5 AM CDT 10/13/2024 2:00 PM CDT us Kinga Rodrigues MD LAB BLOOD ORDERABLES Final R esult Performing Organization Address [facility] de Phone Number [facility] [place] [address] * CRP (acute phase) (10/13/2024 11:55 AM CDT) C-Reactive Protein, Acute <3.0 <5.0 mg/L [facility] Blood 10/13/2024 11:5 5 AM CDT 10/13/2024 12:35 PM CDT us Kinga Rodrigues MD LAB BLOOD ORDERABLES Final R esult Performing Organization Address [facility] Co de Phone Number [facility] * Creatine kinase (CK), total (10/13/2024 11:55 AM CDT) CK, Total 148 26 - 308 IU/L [facility] Blood 10/13/2024 11:5 5 AM CDT 10/13/2024 12:35 PM CDT Kinga Rodrigues MD LAB BLOOD ORDERABLES Final R esult [facility] * [...] - [facility] from Last 3 Months [place] [employer] [place] [place] Care Teams Marketing Development Manager Relationship Specialty Start Date End Date Edmar Randolph MD PCP - General Family Medicine 06/02/20
--- OUTSIDE RECORDS SUMMARY | 2024-12-20 00:27 | XMS_ITS | Encounter Summary ---
Author Organization [facility] Address [address] [place] [address] Phone Care Team Providers Care Missile Facilities Repairer Name Role Phone Edmar Randolph MD Primary Care Provider Encounter Details Date Type Department Care Team (Late st Contact Info) Description 05/24/2022 Orders Only [facility] Scanning, Provider Social History Tobacco Use Types Packs/Day Years Used Date Smoking Tobacco: Never Comments Unknown Sex and Gender Information Value Date Recorded Sex Assigned at Not on file Legal Sex Female 1:30 AM BUSINESS TEACHER Gender Identity Not on file Sexual Orientation [...] documented as of this encounter Care Teams Missile Facilities Repairer Relationship Specialty Start Date End Date Edmar Randolph MD PCP - General Family Medicine 06/02/20 documented as of this encounter
--- OUTSIDE RECORDS SUMMARY | 2024-12-20 00:27 | XMS_ITS | Clinical Summary ---
Author Organization [facility] [employer] Address [address] [place] [address] Care Team Providers Care Health Technician Name Role Phone Unavailable Primary Care Provider Unavailabl e Source Comments [facility] [employer],non-owned Affiliates and Associated Physician Practices is amultiple site organization consisting of ambulatory clinics and hospital sitesin [place], [place], [place] and [place]. This disclosure is being madepursuant to the Care Everywhere program and may not contain all information available regarding this patient. Last updated 17.[facility] [employer] Allergies No known active allergies Medications * [...] on file Legal Sex Female 1:30 PM FOOD QUALITY TECHNICIAN Gender Identity Not on file Sexual Orientation Not on file Last Filed Vital Signs Vital Sign Reading Time Taken Comments Blood Pressure - - Pulse - - Temperature 36.7 C (98.1 F) 02/14/2020 2:03 PM FOOD QUALITY TECHNICIAN Respiratory Rate 16 02/14/2020 2:03 PM FOOD QUALITY TECHNICIAN Oxygen Saturation 97% 02/14/2020 2:03 PM FOOD QUALITY TECHNICIAN Inhaled Oxygen Concentration - - Weight 68 kg (150 lb) 02/14/2020 2:03 PM FOOD QUALITY TECHNICIAN Height 177.8 cm (5' 10) 02/14/2020 2:03 PM FOOD QUALITY TECHNICIAN Body Mass Index 21.52 02/14/2020 2:03 PM FOOD QUALITY TECHNICIAN Plan of Treatment Health Maintenance Due Date [...] patient's age to complete this topic Insurance [facility]
--- OUTSIDE RECORDS SUMMARY | 2024-12-20 00:27 | XMS_ITS | Clinical Summary ---
Author Organization [facility] Address [facility] [place] [address] Care Team Providers Care Kiln Packer Name Role Phone Erasto Rivera MD Primary Care Provider Social History Tobacco Use Types Packs/Day Years Used Date Smoking Tobacco: Never Assessed Comments Unknown Sex and Gender Information Value Date Recorded Sex Assigned at Not on file Legal Sex Female 10:59 PM OUTREACH REP Gender Identity Not on file Sexual Orientation [...] patient's age to complete this topic Insurance [facility] Care Teams Kiln Packer Relationship Specialty Start Date End Date Erasto Rivera MD [address] [place] [phone] PCP - General FAMILY PRACTICE 05/13/19
--- OUTSIDE RECORDS SUMMARY | 2024-12-20 00:27 | XMS_ITS | Clinical Summary ---
Author Organization [facility] Address [address] [place] [id number] Care Team Providers Care Radio Recorder Name Role Phone [facility], External Provider Primary Care Provider U navailable Allergies No known active allergies Social History Tobacco Use Types Packs/Day Years Used Date Smoking Tobacco: Never Assessed Comments Unknown Sex and Gender Information Value Date Recorded Sex Assigned at Not on file Legal Sex Female 8:33 AM CDT Gender Identity Not on file Sexual Orientation Not on file Plan of Treatment Health Maintenance Due Date Last Done Comments CHLAMYDIA SCREENING (ANNUAL) 11-24 YEARS 12/25/2011 HPV VACCINES (1 - 3-dose series) 12/25/2015 DTAP/TDAP/TD VACCINES (1 - Tdap) 12/25/2019 HEPATITIS B VACCINES (1 of 3 - 19+ 3-dose series) 10/2019 CERVICAL CANCER SCREENING 2021 HPV/Cotest (21-29) 2021 PAP SMEAR 2021 INFLUENZA VACCINE (#1) 2024 Insurance [address] [place] [id number] [facility] BLUE ACCESS/TRUE BLUE PPO Care Teams Radio Recorder Relationship Specialty Start Date End Date [facility], External Provider [address] [place] [address] PCP - General 01/21/20
[2024-12-20 00:30] VITALS: BP 126/84; PULSE 97; RESP 18; O2SAT 99
== END 2024-12-20 00:30 | disposition home or self-care (01) ==
LOC: CHSED 12-20 00:25
PROVIDERS: Emergency Provider Emergency Medicine; PCP Family Medicine
DX: S52.121A Displaced fracture of head of right radius, initial encounter for closed fracture (principal); W01.0XXA Fall on same level from slipping, tripping and stumbling without subsequent striking against object, initial encounter; Y93.64 Activity, baseball
CPT/HCPCS: 29105; 73070; 73090; 96374; 96375; 99284; A4565; J1885; J2270